=== PATIENT | male | born 1990 | race Caucasian/White ===

== ENCOUNTER 2017-03-04 09:29 | Emergency (ER) | payer BC ==
[~2017-03-04] VITALS: Ht 185.4 cm; Wt 111.1 kg
[2017-03-04 09:45] LABS: URINE BILIRUBIN NEGATIVE (Negative); URINE BLOOD TRACE (Negative); URINE CLARITY CLEAR; URINE COLOR YELLOW; URINE GLUCOSE-RANDOM NEGATIVE (Negative); URINE KETONES TRACE (Negative); URINE LEUKOCYTES-REFLEX NEGATIVE (Negative); URINE NITRITE-REFLEX NEGATIVE (Negative); URINE PROTEIN NEGATIVE (Negative); URINE SPECIFIC GRAVITY 1.025 (1.005-1.030); URINE UROBILINOGEN 0.2 E.U./dl (0.2-1.0)
[2017-03-04 10:26] LABS: ABSOLUTE BASOPHILS 0.1 thou/uL (0.0-0.2); ABSOLUTE EOSINOPHILS 0.1 thou/uL (0.0-0.7); ABSOLUTE LYMPHOCYTES 2.8 thou/uL (0.8-5.3); ABSOLUTE MONOCYTES 0.9 thou/uL (0.0-1.2); ABSOLUTE NEUTROPHILS 5.5 thou/uL (1.6-8.1); EOSINOPHILS 1.5 %; HEMATOCRIT 46.5 % (42.0-52.0); HEMOGLOBIN 16.3 gm/dL (14.0-18.0); LYMPHOCYTES 29.7 %; MCV 88.6 fL (80.0-100.0); MONOCYTES 9.5 %; MPV 8.9 fl. (7.2-11.1); NUCLEATED RBCS 0 /100WBC; PLATELET COUNT* 291 thou/uL (150-400); POLYS 58.3 %; RBC 5.25 mil/uL (4.50-6.00); RDW-CV 12.8 % (10.5-14.5); WBC 9.5 thou/uL (4.0-11.0)
[2017-03-04 10:30] LABS: CALCIUM 9.4 mg/dL (8.5-10.1); CREATININE 1.2 mg/dL (0.6-1.3)
[2017-03-04 10:34] LABS: TOTAL BILIRUBIN 0.5 mg/dL (<0.1-1.0); TOTAL PROTEIN 7.7 g/dL (6.4-8.2)
[2017-03-04] MEDS ORDERED: NORCO 5-325 TA1 EACH PO (10:42)
[2017-03-04] MEDS ORDERED: FLOMAX0.4 MG PO (10:42)
[2017-03-04] MEDS ORDERED: CIPROFLOXACIN500 M1 PO (10:42)
[2017-03-04 11:32] VITALS: BP 139/98
== END 2017-03-04 11:04 | disposition home or self-care (01) ==
LOC: M.ERS 09:29
PROVIDERS: Family Medicine
DX: N20.0 Calculus of kidney (principal)

== ENCOUNTER 2020-05-21 19:09 | Emergency (ER) | payer BC ==
[~2020-05-21] VITALS: Ht 185.4 cm; Wt 127.0 kg
[~2020-05-21 19:09] MED LIST: CIPROFLOXACIN500 M1 PO; FLOMAX0.4 MG PO; NORCO 5-325 TA1 EACH PO
[2020-05-21 19:36] LABS: URINE BLOOD 3+ (Negative); URINE CLARITY CLEAR; URINE COLOR YELLOW; URINE GLUCOSE-RANDOM NEGATIVE (Negative); URINE KETONES NEGATIVE (Negative); URINE LEUKOCYTES-REFLEX NEGATIVE (Negative); URINE NITRITE-REFLEX NEGATIVE (Negative); URINE PROTEIN 1+ (Negative); URINE SPECIFIC GRAVITY >= 1.030 (1.005-1.030); URINE UROBILINOGEN 0.2 E.U./dl (0.2-1.0)
[2020-05-21 19:42] LABS: URINE BILIRUBIN 1+ (Negative)
[2020-05-21 19:46] LABS: BACTERIA-REFLEX >30 Many /HPF (None Seen); SQUAMOUS 0-3 Few /LPF (0-3); URINE RBC >20 Many /HPF (0-2); URINE WBC-REFLEX 0-5 Rare /HPF (0-5)
[2020-05-21 19:47] LABS: CASTS None Seen /LPF (None Seen); CRYSTALS None Seen /LPF (None Seen); MUCUS 0-3 Light strn/LPF (None Seen)
[2020-05-21 19:56] LABS: HEMATOCRIT 43.1 % (42.0-52.0); HEMOGLOBIN 14.8 gm/dL (14.0-18.0); MCH 29.8 pg (26.0-34.0); MCHC 34.3 g/dL (28.0-37.0); MCV 86.9 fL (80.0-100.0); MPV 8.4 fl. (7.2-11.1); RBC 4.96 mil/uL (4.50-6.00); RDW-CV 13.1 % (10.5-14.5); WBC 12.1 thou/uL (4.0-11.0)
[2020-05-21 20:00] LABS: CALCIUM 8.7 mg/dL (8.5-10.1); CREATININE 1.2 mg/dL (0.6-1.3)
[2020-05-21 20:05] LABS: ALBUMIN 3.7 g/dL (3.4-5.0); TOTAL BILIRUBIN 0.5 mg/dL (<0.1-1.0); TOTAL PROTEIN 7.5 g/dL (6.4-8.2)
[2020-05-21] MEDS ORDERED: FLOMAX0.4 MG PO (21:42)
[2020-05-21] MEDS ORDERED: TORADOL 10 MG T10 MG PO (21:42)
[2020-05-21 21:50] VITALS: BP 150/92
== END 2020-05-21 21:53 | disposition home or self-care (01) ==
LOC: M.ERS 19:09
PROVIDERS: Personal Emergency Response Attendant
DX: N20.0 Calculus of kidney (principal)